=== PATIENT | male | born 1980 | race Caucasian/White ===

== ENCOUNTER 2020-01-13 08:53 | Outpatient (CLI) | payer OTHER, SELFPAY ==
--- NOTE | 2020-01-12 14:02 | DI.RAD_ITS ---
EXAM: XR ANKLE LT COMPLETE CLINICAL HISTORY: LT ANKLE JT PAIN, M25.572 TECHNIQUE: COMPARISON: XR FOOT LT COMPLETE from 01/12/2020 FINDINGS: Three views of the foot and three views of the ankle were obtained. The ankle mortise is well mainta ined. No bony abnormality seen involving the ankle. There are a couple of questionable lucencies projected in the mid to anterior portion of the calcaneu s with question of slight cortical deformity of the plantar cortex of the calcaneus seen on lateral v iews. Possibility of a nondisplaced calcaneal fracture is raised. No other bony abnormality seen involving foot. IMPRESSION: Questionable lucencies/deformity of calcaneus as described above, additional evaluation with CT may b e considered to rule out occult fracture.
== END 2020-01-13 09:13 ==
PROVIDERS: PCP Nurse Practitioner Adult Health; Visit Provider Nurse Practitioner Family
DX: M25.572 Pain in left ankle and joints of left foot (principal); M21.6X2 Other acquired deformities of left foot
CPT/HCPCS: 73610; 73630

== ENCOUNTER 2020-01-15 07:20 | Outpatient (CLI) | payer OTHER, SELFPAY ==
--- NOTE | 2020-01-15 14:05 | DI.CT_ITS ---
EXAM: CT LOWER EXTREMITY LT WO CLINICAL HISTORY: LT ANKLE JOINT PAIN, M25.572, F/U ABNORMAL X-RAYS CALCANEUS. TECHNIQUE: Imaging Protocol: Axial computed tomography images with coronal and sagittal reformatted images were created and reviewed. COMPARISON: XR FOOT LT COMPLETE from 01/12/2020 FINDINGS: Bones: The osseous structures and articular surfaces are intact. There is no evidence of fracture or dislocation. Bony alignment is satisfactory. There is no evidence of joint space narrowing or cysti c degeneration seen. No lytic or sclerotic lesions are identified. Soft Tissues: Normal. IMPRESSION: No evidence of a calcaneal fracture. DATA REPOSITORY: All CT scans at this facility are submitted to the National Radiology Data Registry (NRDR) Dose Index Registry (DIR) with the [employer] (ACR). RADIATION OPTIMIZATION: All CT scans at this facility use at least one of these dose optimization te chniques: automated exposure control; mA and/or kV adjustment per patient size (includes targeted exa ms where dose is matched to clinical indication); or iterative reconstruction.
== END 2020-01-15 07:40 ==
PROVIDERS: PCP Nurse Practitioner Adult Health; Visit Provider Nurse Practitioner Family
DX: M25.572 Pain in left ankle and joints of left foot (principal)
CPT/HCPCS: 73700

== ENCOUNTER 2021-01-05 08:32 | Outpatient (REF) | payer OTHER, SELFPAY ==
[2021-01-05 15:26] LABS: HCT 44.3 % (40.0-50.0); HGB 16.4 g/dL (13.5-17.5); MCH 34.4 pg (27.0-33.0); MCV 92.9 fL (80-95); MPV 11.8 fL (8.0-11.0); Platelet Count 269 10^3/uL (130-400); RBC 4.77 10^6/uL (4.36-5.78); RDW 12.1 % (11.8-14.1); RDW-SD 41.7 fL
[2021-01-05 15:52] LABS: Albumin 3.3 g/dL (3.4-5.0); Alkaline Phosphatase 89 U/L (46-116); Anion Gap 9.3 mmol/L (3-11); BUN 16 mg/dL (7-18); Bilirubin, Total 0.8 mg/dL (0.2-1.0); CO2 25.7 mmol/L (21.0-32.0); Calcium 7.8 mg/dL (8.5-10.1); Chloride 102 mmol/L (98-107); Cholesterol 315 mg/dL (<200); Glucose 142 mg/dL (74-106); HDL Cholesterol 28 mg/dL (40-60); Potassium 4.9 mmol/L (3.5-5.1); Sodium 137 mmol/L (136-145)
[2021-01-05 16:14] LABS: Triglyceride 2176 mg/dL (<150)
[2021-01-05 16:36] LABS: ALT 52 U/L (16-63)
[2021-01-05 16:42] LABS: CREATININE 0.5 mg/dL (0.70-1.30)
[2021-01-05 16:43] LABS: Total Protein 6.1 g/dL (6.4-8.2)
[2021-01-05 16:50] LABS: AST 45 U/L (15-37)
[2021-01-05 16:54] LABS: LDL CHOLESTEROL 86 mg/dL (<100)
== END 2021-01-05 08:33 | disposition home or self-care (01) ==
LOC: NCHCN 08:32
PROVIDERS: PCP Nurse Practitioner Adult Health; Visit Provider Family Medicine
DX: E78.1 Pure hyperglyceridemia (principal); F10.99 Alcohol use, unspecified with unspecified alcohol-induced disorder
CPT/HCPCS: 80053; 80061; 83721; 85027

== ENCOUNTER 2021-08-21 03:05 | Outpatient (CLI) | payer OTHER, SELFPAY ==
[2021-08-21] MEDS: Inhaler, Assist Device 1 EACH MC (09:30)
[2021-08-21] MEDS: Albuterol HFA 18 GM 200 PUFF INH IH (09:30)
[2021-08-21 18:34] LABS: HGB 15.4 g/dL (13.5-17.5); MCH 33.1 pg (27.0-33.0); MCHC 34.2 % (32.0-36.0); MCV 96.8 fL (80-95); MPV 11.9 fL (8.0-11.0); Platelet Count 266 10^3/uL (130-400); RBC 4.65 10^6/uL (4.36-5.78); RDW 12.2 % (11.8-14.1); RDW-SD 43.4 fL; WBC 6.99 10^3/uL (4.4-10.8)
[2021-08-21 18:43] LABS: ALT 35 U/L (16-63); AST 18 U/L (15-37); Albumin 3.9 g/dL (3.4-5.0); Alkaline Phosphatase 78 U/L (46-116); Anion Gap 7.9 mmol/L (3-11); BUN 18 mg/dL (7-18); Bilirubin, Total 0.5 mg/dL (0.2-1.0); CO2 27.1 mmol/L (21.0-32.0); CREATININE 0.9 mg/dL (0.70-1.30); Calcium 8.9 mg/dL (8.5-10.1); Chloride 108 mmol/L (98-107); Glucose 120 mg/dL (74-106); Potassium 4.7 mmol/L (3.5-5.1); Sodium 143 mmol/L (136-145)
[2021-08-21 19:07] LABS: Cholesterol 302 mg/dL (<200); HDL Cholesterol 33 mg/dL (40-60)
[2021-08-21 19:32] LABS: Triglyceride 1135 mg/dL (<150)
[2021-08-21 19:43] LABS: LDL CHOLESTEROL 115 mg/dL (<100)
[2021-08-23 09:46] LABS: Hepatitis B Surface Ag Negative (Negative)
[2021-08-23 10:33] LABS: Hepatitis C Ab w Rflx HCV PCR Negative (Negative)
[2021-08-23 11:10] LABS: HIV-1/2 Ag & Ab Screen Negative (Negative)
--- NOTE | 2021-09-01 10:49 | W.PFT ---
Date of service: 08/21/21 Time of Service: 07:59 Pulmonary Function Test Result Requesting Provider Tobi Clemens Indications: Dyspnea Interpretation Spirometry: There is mild airflow limitation. Significant improvement in FEV1 (20%) administration of a bronchodilator. Lung Volumes: There is evidence of hyperinflation and air trapping. Diffusion Capacity: Normal diffusion. Airway Pressure: Normal airways resistance. Impression Mild airflow limitation with a significant bronchodilator response as well as evidence of hyperinflation and air trapping. Note: In the correct clinical context this could represent uncontrolled asthma or chronic bronchitis (COPD). Clinical Correlation therefore is recommended.
== END 2021-08-21 03:06 | disposition home or self-care (01) ==
LOC: RT 03:06 → NCHCN 17:40
PROVIDERS: PCP Nurse Practitioner Adult Health; Visit Provider Family Medicine
DX: Z11.4 Encounter for screening for human immunodeficiency virus [HIV] (principal); E78.1 Pure hyperglyceridemia; R74.8 Abnormal levels of other serum enzymes; Z11.59 Encounter for screening for other viral diseases; Z00.00 Encounter for general adult medical examination without abnormal findings; R06.02 Shortness of breath; F17.210 Nicotine dependence, cigarettes, uncomplicated; R94.2 Abnormal results of pulmonary function studies
CPT/HCPCS: 80053; 80061; 83721; 85027; 86803; 87340; 87389; 94060; 94726; 94729

== ENCOUNTER 2022-08-09 11:30 | Outpatient (CLI) | payer OTHER, SELFPAY ==
--- OUTSIDE RECORDS SUMMARY | 2022-08-09 11:35 | XMS_ITS | Encounter Summary ---
:1980 Author Organization [facility] Address [address] [place] [address] Care Team Providers Name Role Phone Unavailable Primary Care Provider Unavailable Encounter Details Date Type Department Care Team Description 07/18/2007 Results Only [facility] - Hoa Bueno MD [address] [place] [id number] (Wo rk) Social History Tobacco Use Types Packs/Day Years Used Date Never Assessed Sex Assigned at Date Recorded Not on file documented as of this encounter Plan of Treatment Not on filedocumented as of this encounter Procedures Procedure Name Priority Date/Time Associated Diagnosis Comme [facility] SURGICAL PATHOLOGY Routine 07/18/2007 0:00 EDT Re sults for this procedure are i n the results section. documented in this encounter Results SURGICAL PATHOLOGY (07/18/2007 0:00 EDT) Pathology Report: SURGICAL PATHOLOGY REPORT THOMAS ALBERTS Reports generated via electronic interface contain eleazar ginal data; LAB however they are lacking the format of the original re port. Caution should be taken when reading/interpreting unfo rmatted reports. Name: ? PENG ZELAYA ? Accession #: ? [id number] ? : ? 1980 (Age: 26) ??M ? Collect Date: ? 07/18/2007 ? Location: ? [facility] ? Receive Date: ? 007 ? Provider: HOA VILLANUEVA MD Copy to: ? Final Pathologic Diagnosis: ? Olecranon bursa, left, resection: - Acute and chronic inflammation and granulation tissu e. Document reviewed and electronically signed by: DEDE ESPITIA MD Report ??Date: 07/25/2007 08:29 By the signature above, the attending physician certif ies that he/she has personally conducted a gross and/or microscopic examin ation of the described specimens and rendered or confirmed the above diagnosi s. Specimen(s) Received: ? Infected olecranon bursa L Clinical History: ? L olecranon, bursitis Gross Description: ? Received in formalin labelled D'Cathryn and infected olecranon bursa left is a firm arreaga-white unorien ronni 4.1 3.4 x 1.4 cm rubbery soft tissue. ??The cut surfaces are smooth, homogenous and yellow-white. ??Th e specimen is inked, serially sectioned, and repr esentative sections are submitted as (A1) and (A2). (Dr. Mari-MS)/[facility] End of Report Specimen Performing Organization Address City/State/ZIP Code Phon e Number [facility] [address] [place] [address] SERVICES [facility] [address] [place] [address] documented in this encounter Visit Diagnoses Not on filedocumented in this encounter
--- OUTSIDE RECORDS SUMMARY | 2022-08-09 11:35 | XMS_ITS | Encounter Summary ---
:1980 Author Organization [facility] Address [address] [place] [address] Care Team Providers Name Role Phone Unknown, Provider Primary Care Provider Encounter Details Date Type Department Care Team Description 08/22/2021 Lab Requisition [facility] Outr Resulting Lab, Pathology & Laboratory Provider [facility] [address] [place] [address] Social History Tobacco Use Types Packs/Day Years Used Date Never Assessed Sex Assigned at Date Recorded Not on file documented as of this encounter Plan of Treatment Not on filedocumented as of this encounter Procedures Procedure Name Priority Date/Time Associated Diagnosis Comme nts HEPATITIS C AB W Routine 08/21/2021 7:30 EDT Resu lts for this REFLEX TO HCV RNA procedure are in BY PCR the results section. HEPATITIS B SURFACE Routine 08/21/2021 7:30 EDT R esults for this ANTIGEN procedure are i n the results section. documented in this encounter Results HEPATITIS B SURFACE ANTIGEN (08/21/2021 7:30 EDT) Pathologist Sig nature Hep B Surface Ag Negative Negative [facility] SERVICES Specimen Blood - Venous blood (substance) Performing Organization Address [facility]/ZIP Code Phon e Number [facility] [address] [place] [address] SERVICES HEPATITIS C AB W REFLEX TO HCV RNA BY PCR (08/21/2021 7:30 EDT) Pathologist Sig nature Hep C Antibody Negative Negative [facility] SERVICES Specimen Blood - Venous blood (substance) Performing Organization Address [facility] Phon e Number [facility] [address] [place] [address] SERVICES documented in this encounter Visit Diagnoses Not on filedocumented in this encounter Care Teams Medical Housekeeper Relationship Specialty Start Date End Date Unknown, Provider, PCP - General 09/02/15 documented as of this encounter
--- OUTSIDE RECORDS SUMMARY | 2022-08-09 11:35 | XMS_ITS | Clinical Summary ---
:1980 Author Organization [facility] Address [address] [place] [address] Care Team Providers Name Role Phone Unknown, Provider Primary Care Provider Social History Tobacco Use Types Packs/Day Years Used Date Never Assessed Sex Assigned at Date Recorded Not on file Plan of Treatment Health Maintenance Due Date Last Done Comments COVID-19 Vaccine (1) 1992 Hepatitis C Screen Completed 08/21/2021 Care Teams Supervisor [employer] Relationship Specialty Start Date End Date Unknown, Provider, PCP - General 09/02/15
[2022-08-09 15:29] LABS: HCT 46.8 % (40.0-50.0); HGB 16.4 g/dL (13.5-17.5); MCH 32.9 pg (27.0-33.0); MCV 94 fL (80-95); MPV 10.8 fL (8.0-11.0); Platelet Count 266 10^3/uL (130-400); RBC 4.99 10^6/uL (4.36-5.78); RDW 12.3 % (11.8-14.1); RDW-SD 42.6 fL; WBC 7.33 10^3/uL (4.4-10.8)
[2022-08-09 15:58] LABS: ALT 33 U/L (16-63); AST 29 U/L (15-37); Albumin 4.2 g/dL (3.4-5.0); Alkaline Phosphatase 85 U/L (46-116); Anion Gap 8.7 mmol/L (3-11); BUN 21 mg/dL (7-18); Bilirubin, Total 1.2 mg/dL (0.2-1.0); CO2 27.3 mmol/L (21.0-32.0); Calcium 9.2 mg/dL (8.5-10.1); Calculated LDL 190 mg/dL (<100); Chloride 104 mmol/L (98-107); Cholesterol 288 mg/dL (<200); Estimated GFR 96.97 (mL/min/1.73m2); Glucose 100 mg/dL (74-106); HDL Cholesterol 57 mg/dL (40-60); Potassium 4.3 mmol/L (3.5-5.1); Sodium 140 mmol/L (136-145); Total Protein 7.8 g/dL (6.4-8.2); Triglyceride 208 mg/dL (<150)
== END 2022-08-09 11:31 | disposition home or self-care (01) ==
LOC: LBO 11:33 → NCHCN 14:43
PROVIDERS: PCP Nurse Practitioner Adult Health; Visit Provider Family Medicine
DX: R74.8 Abnormal levels of other serum enzymes (principal); F10.99 Alcohol use, unspecified with unspecified alcohol-induced disorder; E78.1 Pure hyperglyceridemia
CPT/HCPCS: 80053; 80061; 85027

== ENCOUNTER 2022-10-23 21:54 | Outpatient (REF) | payer OTHER, SELFPAY ==
[2022-10-25 11:34] LABS: COVID-19 RT-PCR UVMMC Result Positive (Negative)
== END 2022-10-23 21:55 | disposition home or self-care (01) ==
LOC: LBN 21:54
PROVIDERS: PCP Nurse Practitioner Adult Health; Visit Provider Family Medicine
DX: Z20.822 Contact with and (suspected) exposure to COVID-19 (principal); J06.9 Acute upper respiratory infection, unspecified
CPT/HCPCS: U0003

== ENCOUNTER 2023-11-15 08:56 | Outpatient (CLI) | payer OTHER, SELFPAY ==
[2023-11-15 09:30] LABS: CO2 28.4 mmol/L (21.0-32.0); Cholesterol 364 mg/dL (<200); HDL Cholesterol 44 mg/dL (40-60)
[2023-11-15 09:35] LABS: Triglyceride 1047 mg/dL (<150)
[2023-11-15 10:11] LABS: ALT 32 U/L (16-63); AST 18 U/L (15-37); Albumin 3.7 g/dL (3.4-5.0); Alkaline Phosphatase 66 U/L (46-116); Anion Gap 7.6 mmol/L (3-11); BUN 19 mg/dL (7-18); Chloride 104 mmol/L (98-107); Estimated GFR 95.77 (mL/min/1.73m2); Glucose 115 mg/dL (74-106); Sodium 140 mmol/L (136-145)
[2023-11-15 10:12] LABS: Bilirubin, Total 0.7 mg/dL (0.2-1.0); Potassium 4.5 mmol/L (3.5-5.1); Total Protein 7.2 g/dL (6.4-8.2)
[2023-11-15 10:14] LABS: LDL CHOLESTEROL 92 mg/dL (<100)
== END 2023-11-15 08:57 | disposition home or self-care (01) ==
LOC: LBO 08:56
PROVIDERS: PCP Nurse Practitioner Adult Health; Visit Provider Family Medicine
DX: E78.5 Hyperlipidemia, unspecified (principal); F10.10 Alcohol abuse, uncomplicated
CPT/HCPCS: 36415; 80053; 80061; 83721

== ENCOUNTER 2024-01-06 08:51 | Emergency (ER) | payer OTHER, SELFPAY ==
[2024-01-06] VITALS (39 sets, daily range): BP systolic 137–176; BP diastolic 47–70; PULSE 33–48; RESP 10–22; TEMP 36.6; O2SAT 97–100
--- NOTE | 2024-01-06 08:45 | DI.RAD_ITS ---
Exam(s) XR PORTABLE CHEST AP EXAM: XR PORTABLE CHEST AP CLINICAL HISTORY: chest pain. TECHNIQUE: 2D digital imaging was performed. COMPARISON: No exams were available for comparison FINDINGS: Single AP portable view. Cardiac leads and pads in place. Heart size is upper normal. The mediastinum is not widened. Platelike atelectasis or scarring noted in the right upper lobe. No infiltrates nor pleural effusions. No airspace pulmonary edema. No pneumothorax. No fractures. IMPRESSION: Scarring or platelike atelectasis in the right upper lobe. DATA REPOSITORY: RADIATION DOSE DELIVERED:
--- NOTE | 2024-01-06 08:45 | RT.EKG_ITS ---
APPROVED REPORT Exam: Resting ECG Reason for Exam: Chest Pain Patient Location: E HR:36 bpm ECG Measurements Heart Rate 36 AXIS WV 162 P 33 QRSd 97 QRS 30 QT 448 T 79 QTc 346 Conclusion Sinus bradycardia...rate< 60 Nonspecific T abnrm, anterolateral leads...T <-0.10mV, I aVL V2-V6 ST elev, probable normal early repol pattern...ST elevation, age<55 sinus bradycardia, normal axis, normal intervals, consider st segment elevation V3, V4
[2024-01-06] MEDS: Normal Saline 500 ML IV (09:07)
[2024-01-06] MEDS: Aspirin 81 MG CHEW 324 MG CH (09:07)
[2024-01-06 09:10] LABS: Abs Immature Grans 0.02 10^3/uL (0.0-0.06); Absolute Basophil Count 0.08 10^3/uL (0.0-0.2); Absolute Eosinophil Count 0.64 10^3/uL (0.0-0.7); Absolute Lymphocyte Count 2.89 10^3/uL (1.2-3.4); Absolute Monocyte Count 0.55 10^3/uL (0.1-0.8); Absolute Neutrophil Count 4.12 10^3/uL (1.2-6.7); Eosinophils % 7.7; HCT 46.4 % (40.0-50.0); HGB 16.5 g/dL (13.5-17.5); Immature Grans % 0.2; Lymphocytes % 34.8; MCH 32.9 pg (27.0-33.0); MCHC 35.6 % (32.0-36.0); MCV 93 fL (80-95); MPV 9.8 fL (8.0-11.0); Monocytes % 6.6; Neutrophils % 49.7; Platelet Count 266 10^3/uL (130-400); RBC 5.01 10^6/uL (4.36-5.78); RDW 12.2 % (11.8-14.1); RDW-SD 41.7 fL
[2024-01-06] MEDS: MORPHine 4 MG/ML SYR IVP (09:16)
--- NOTE | 2024-01-06 09:20 | W.ED.GENAD ---
Discharge Plan Disposition Patient Disposition: Transfer-Acute Inpatient Care Specific Acute Inpt Facility: [facility] Condition: Serious Discharge Details Clinical Impression: Acute dissection of thoracic aorta Primary Care Provider: Tobi Clemens ED Provider: Darin Agee Home Meds and New Rx's Prescriptions: No Action No Known Home Meds HPI General Date/Time Provider Initiated Documentation: 01/06/24 08:57. HPI Narrative: 43 year-old male presents to ED today by POV/ambulating with a chief complaint of chest pain, sudden onset while dropping his daughter off at school- ten minutes prior to arrival. Quality described as squeezing sensation around his esophagus, no radiation to syncope- endorses shortness of breath, dizziness, mild blurred vision, and just feeling weak. Severity is described as 7/10 on arrival, improved to 5/10 with analgesics. Palliating factors include nothing specific attemtped. Provoking factors include nothing specific. Events leading up to the incident/Associated Symptoms: Patient denies cardiac history, takes no medications, was recently diagnosed with severely high triglycerides by PCP- not yet initiated on statins. Patient denies early cardiac history in first degree relatives. Patient not anticoagulated. Related Data Home Medications Medication Instructions Recorded Confirmed Unknown [No Known Home Meds] 01/06/24 01/06/24 Allergies Allergy/AdvReac Type Severity Reaction Status Date / Time No Known Allergies Allergy Unverified 01/06/24 09:09 General Stated Complaint: Chest Pain JENNYFER: 2 Review of Systems All systems reviewed & are unremarkable except as noted in HPI and below Exam Narrative Exam Narrative: GENERAL APPEARANCE: Well-nourished, non-toxic, awake and alert, atraumatic, no acute distress. SKIN: Warm, pale, diaphoretic, intact, without rashes/lesions/ulcerations. HEAD: Normocephalic, atraumatic, normal hair distribution for gender/age. EYES: Pupils PERRLA, EOMs intact without nystagmus, normal conjunctiva, no exudates on lids/lashes. ENT: Nares patent, no circumoral cyanosis, no facial swelling NECK: Supple, trachea midline, painless cervical ROM. LUNGS/CHEST: Lungs CTA bilaterally, non-labored respirations, normal A/P diameter, symmetrical expansion, no chest wall deformity HEART (CV/PV): Regular rate and rhythm without murmur- severely bradycardic, no peripheral edema, no JVD, pedal pulses 2+ bilaterally at dorsalis pedis ABDOMEN: Soft, non-distended, no guarding, no pulsatile masses, no tenderness, no organomegaly. MSK: Normal ROM, no swelling/deformity to bilateral UEs or LEs, moving all extremities without weakness, no cyanosis, spine midline without tenderness, normal curvature. NEURO: Mental Status AAOx4 - alert to person, place, time, events No facial droop, no forehead involvement. Motor: No focal weakness - strength 5/5 in bilateral UEs and LEs, proximal and distal, symmetric. Sensory: sensation intact to light touch globally. Gait normal: patient ambulated without ataxia into ED room. PSYCH: euthymic, cooperative, pleasant, appropriate speech Course Vital Signs Vital signs: Vital Signs Temperature 36.6 C 01/06/24 08:56 Pulse 38 L 01/06/24 08:56 Respiratory Rate 22 01/06/24 08:56 Blood Pressure 170/70 H 01/06/24 08:56 Pulse Oximetry 100 01/06/24 08:56 Temperature 36.6 C 01/06/24 08:56 Pulse 38 L 01/06/24 08:56 Respiratory Rate 11 L 01/06/24 09:14 Respiratory Effort Normal 01/06/24 09:14 Respiratory Depth Normal 01/06/24 09:14 Respiratory Pattern Normal 01/06/24 09:14 Blood Pressure 170/70 H 01/06/24 08:56 Blood Pressure Position Supine 01/06/24 08:56 Pulse Oximetry 100 01/06/24 08:56 Pain Level 7 01/06/24 08:56 Lab/Test Results Lab/Test Results: Laboratory Tests Range/Units 01/06/24 09:05 WBC (4.4-10.8) 10^3/uL 8.30 RBC (4.36-5.78) 10^6/uL 5.01 Hgb (13.5-17.5) g/dL 16.5 Hct (40.0-50.0) % 46.4 MCV (80-95) fL 93 MCH (27.0-33.0) pg 32.9 MCHC (32.0-36.0) % 35.6 RDW (11.8-14.1) % 12.2 Plt Count (130-400) 10^3/uL 266 MPV (8.0-11.0) fL 9.8 Immature Gran % 0.2 Neutrophils % 49.7 Lymphocytes % 34.8 Monocytes % 6.6 Eosinophils % 7.7 Basophils % 1.0 Nucleated RBC % (0.0-0.3) % 0.0 Absolute Neutrophils (1.2-6.7) 10^3/uL 4.12 Absolute Lymphocytes (1.2-3.4) 10^3/uL 2.89 Absolute Monocytes (0.1-0.8) 10^3/uL 0.55 Absolute Eosinophils (0.0-0.7) 10^3/uL 0.64 Absolute Basophils (0.0-0.2) 10^3/uL 0.08 Medical Decision Making This dictation utilizes [id number] dictation software and may contain unedited grammatical errors. 43 y/o M presents to ED today with a chief complaint of chest pain, sweating, dizziness - started about 10 minutes prior to arrival while dropping his daughter off at school. States no syncope, feels like a squeezing around his esophagus, denies nausea/vomiting. Patient did have Covid this winter, reports many tick bites over the year. Denies known cardiac history, does have severely high triglycerides, recently diagnosed and has not been started on a statin. Family and social history: endorses tobacco use, denies ETOH/illicit drug use. Pertinent exam findings / vital signs include bradycardic in 30s-50, pale, diaphoretic, lungs CTA, benign abdomen, no pulsations. Differential / pathologies of concern include complete heart block, lyme carditis, myocarditis, NSTEMI, aortic dissection, gastritis. Diagnostic studies of: -CBC, CMP, Lipase, Lactate, Tick Panel, TSH, Trop I, BNP, D-dimer, CXR, EKG, CTA Thorax/ABD/Pelvis. POCUS ECHO by EM Attending Dr. Lin. -CBC benign -CMP benign, no ARCHANA -Lactate neg -Lipase wnl -Trop I negative, BNP normal -D-dimer mildly elevated -CXR no widened mediastinum -EKG sinus bradycardia without complete heart block -POCUS shows good squeeze globally, no valvular abnormality, see Dr. Lin's note -CT Thorax/ABD/Pelvis was added with negative studies and continued chest pain - shows Type A thoracic aortic dissection without carotid involvement, no pericardial effusion > emergent transfer, consulted [facility] CT Surgeon Dr. Cardenas - accepts patient for transfer, [facility] en route. Goal SBP < 120, patient is severely bradycardic- trying fentanyl to see if pain playing a role in BP of 150s-170 SBP, started Nicardipine with atropine at bedside if needed. Interventions of: -Placed on pacing pads, 324mg ASA given, 4mg morphine, 50mcg fentanyl, [facility] to [facility] ED. Disposition of Acute Dissection of Thoracic Aorta. Patient verbalized understanding of the plan and return to ED criteria and engaged in shared decision making. Medical Records Medical records reviewed: Yes I reviewed the patient's medical records. Imaging Data Radiologic Study: Attestation: I personally reviewed and interpreted this imaging study as follows: Imaging: X-Ray Radiologist's impression: EXAM: XR PORTABLE CHEST AP CLINICAL HISTORY: chest pain. TECHNIQUE: 2D digital imaging was performed. COMPARISON: No exams were available for comparison FINDINGS: Single AP portable view. Cardiac leads and pads in place. Heart size is upper normal. The mediastinum is not widened. Platelike atelectasis or scarring noted in the right upper lobe. No infiltrates nor pleural effusions. No airspace pulmonary edema. No pneumothorax. No fractures. IMPRESSION: Scarring or platelike atelectasis in the right upper lobe. Radiologic Study #2: Attestation: I personally reviewed and interpreted this imaging study as follows: Imaging: CT Scan Radiologist's impression: EXAM: CT THORAX ABD/PEL CTA CLINICAL HISTORY: aorta study, chest pain. TECHNIQUE: Imaging Protocol: Axial computed tomography images with coronal and sagittal reformatted images were created and reviewed CONTRAST MATERIAL: Intravenous: Omnipaque 350 Contrast volume:100 ml Oral: None COMPARISON: CR XR PORTABLE CHEST AP from 01/06/2024 FINDINGS: CHEST: AORTA: This study is positive for dissection. There is a type A aortic dissection starting just above the aortic valve and extending along the length of the aortic arch and with intimal flap seen down to the level of the lower descending thoracic aorta but not continue into the patent abdominal aorta. There is no associated pericardial effusion. The aortic arch anatomy appears bovine. The intimal flap extends along the origin of the brachiocephalic/left common carotid and also adjacent to the base of the left subclavian artery. There is normal opacification of these great vessels off of the arch. The diameter of the ascending thoracic aorta is 3.8 cm. The diameter of the proximal and mid aortic arch is 3.6 cm. Diameter of the proximal descending thoracic aorta is 3 cm. Diameter of the mid descending thoracic aorta is 2.7 cm. Diameter of the distal most thoracic aorta is 2.5 cm. There is no evidence of abdominal aortic aneurysm. Maximum diameter of the abdominal aorta is 2.3 cm. There is slight prominence of diameter of both common iliac arteries. These exhibit diameters 1.4 cm bilaterally. There is no significant atherosclerotic disease in the abdominal aorta and iliac arteries. No significant tortuosity of the common and external iliac arteries. Both femoral arteries exhibit equal 10 mm luminal diameters. LUNGS: No infiltrates nor pleural effusions. No pulmonary edema. No pneumothorax. No incidental nodules. No findings in the trachea and mainstem bronchi.. MEDIASTINUM: There is no hilar nor mediastinal adenopathy. Visualized thyroid unremarkable. CARDIAC: Heart size is normal. There is no pericardial effusion. There is no obvious coronary artery calcification. ABDOMEN: There is no ascites. LIVER: There are no focal hepatic lesions nor dilatation of intrahepatic ducts. GALLBLADDER/BILIARY: No obvious gallbladder pathology. CBD is not dilated. PANCREAS: No evidence of pancreatic mass nor dilatation of the pancreatic duct. SPLEEN: Spleen is not enlarged. There are no intrasplenic lesions. Splenic and portal veins are patent. ADRENALS: There are no significant adrenal masses. 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 No calculi nor hydronephrosis. No solid renal masses. ABDOMINAL AORTA: The abdominal aorta is not enlarged. LYMPH NODES: There is no retroperitoneal nor para-aortic adenopathy. No obvious mesenteric masses. ABDOMINAL WALL: No evidence of significant anterior abdominal wall hernia. GI: No ischemic appearing bowel loops. No bowel obstruction. PELVIS: LYMPH NODES: There is no intrapelvic nor inguinal adenopathy. GI: No evidence of appendicitis.No evidence of sigmoid diverticulitis. URINARY BLADDER: No calculi nor masses evident REPRODUCTIVE: Prostate size normal. Seminal vesicles unremarkable. OSSEOUS: No significant osseous lesions. No fractures. IMPRESSION: 1. There is a type A aortic dissection extending from just above the aortic valve down to the lower thoracic aorta, not associated with pericardial effusion and heart size is normal. Diameter of the ascending thoracic aorta is 3.8 cm and there is no evidence of atherosclerotic disease in the entire aorta and aortoiliac segments. No evidence of abdominal aortic aneurysm. Mild arteriomegaly of both common iliac arteries noted with diameter is 1.4 cm bilaterally but no evidence of focal fusiform aneurysms of these vessels. 2. The dissection flap skirts the origin of the brachiocephalic and slightly bovine origin of the left common carotid artery as well as the origin of the left subclavian artery but does not appear to extend appreciably into these great vessels and there is good flow demonstrated within these great vessels. Both vertebral arteries are patent and both originate in conventional fashion off of the bilateral subclavian arteries. 3. Horseshoe kidney configuration incidentally noted. 4. No ischemic appearing bowel loops in the dissection flap does not extend into the abdominal aorta at the time of image acquisition. It appears to terminate in the distal thoracic aorta Report discussed by phone with ER provider Lab Data Lab results reviewed: Yes I reviewed the patient's lab results. Labs: Laboratory Tests Range/Units 01/06/24 01/06/24 09:05 10:30 WBC (4.4-10.8) 10^3/uL 8.30 RBC (4.36-5.78) 10^6/uL 5.01 Hgb (13.5-17.5) g/dL 16.5 Hct (40.0-50.0) % 46.4 MCV (80-95) fL 93 MCH (27.0-33.0) pg 32.9 MCHC (32.0-36.0) % 35.6 RDW (11.8-14.1) % 12.2 Plt Count (130-400) 10^3/uL 266 MPV (8.0-11.0) fL 9.8 Immature Gran % 0.2 Neutrophils % 49.7 Lymphocytes % 34.8 Monocytes % 6.6 Eosinophils % 7.7 Basophils % 1.0 Nucleated RBC % (0.0-0.3) % 0.0 Absolute Neutrophils (1.2-6.7) 10^3/uL 4.12 Absolute Lymphocytes (1.2-3.4) 10^3/uL 2.89 Absolute Monocytes (0.1-0.8) 10^3/uL 0.55 Absolute Eosinophils (0.0-0.7) 10^3/uL 0.64 Absolute Basophils (0.0-0.2) 10^3/uL 0.08 D-Dimer (<500) ng/mlFEU 505 H Sodium (136-145) mmol/L 139 Potassium (3.5-5.1) mmol/L 4.1 Chloride (98-107) mmol/L 104 Carbon Dioxide (21.0-32.0) mmol/L 21.4 Anion Gap (3-11) mmol/L 13.6 H BUN (7-18) mg/dL 19 H Creatinine (0.70-1.30) mg/dL 1.1 Est GFR (CKD-EPI 2020) (mL/min/1.73m2) 85.42 Glucose (74-106) mg/dL 143 H Calcium (8.5-10.1) mg/dL 8.2 L Total Bilirubin (0.2-1.0) mg/dL 0.4 AST (15-37) U/L 31 ALT (16-63) U/L 33 Alkaline Phosphatase (46-116) U/L 83 Troponin I (< or =60) ng/L < 50 NT-Pro-B Natriuret Pep (<300) pg/mL 93 Total Protein (6.4-8.2) g/dL 7.2 Albumin (3.4-5.0) g/dL 3.7 Lipase (16-77) U/L 33 TSH (0.36-3.74) uIU/mL 1.88 COVID-19 Source Nasopharynx SARS-CoV-2 (PCR) (Negative) Negative Influenza Type A (PCR) (Negative) Negative Influenza Type B (PCR) (Negative) Negative RSV (PCR) (Negative) Negative Quality:SDOH Health Related Social Needs: No Data to Display PFSH All Active Problems (Updated 01/06/24 @ 12:03 by LUISANA Stewart) Acute dissection of thoracic aorta (Acute) Social History Smoking/Tobacco Use Status: Current every day Smoking risk assessment performed?: Yes Alcohol Intake: current Alcohol Intake frequency: a few times a week Alcohol type: beer Drug use: Daily Substance use type: does not use PAWSS Have you Been Recently Intoxicated or Drunk Within the Last 30 days?: No Have you Ever Experienced Previous Episodes of Alcohol Withdrawal?: No Have you ever Experienced Withdrawal Seizures?: No Have you ever Experienced Delirium Tremens(DT)s?: No Have you ever undergone Alcohol Rehabilitation Treatment (i.e, inpt ot outpatient treatment programs)?: No Have you ever Experienced Blackouts?: No Have you ever Combined Alcohol with other Downers within the last 90 days?: No Have you ever Combined Alcohol with any other Substance of Abuse during the last 90 days?: No Result: 0
[2024-01-06 09:40] LABS: D-Dimer 505 ng/mlFEU (<500)
[2024-01-06 09:48] LABS: Albumin 3.7 g/dL (3.4-5.0); Alkaline Phosphatase 83 U/L (46-116); Anion Gap 13.6 mmol/L (3-11); BUN 19 mg/dL (7-18); Bilirubin, Total 0.4 mg/dL (0.2-1.0); CO2 21.4 mmol/L (21.0-32.0); CREATININE 1.1 mg/dL (0.70-1.30); Calcium 8.2 mg/dL (8.5-10.1); Chloride 104 mmol/L (98-107); Estimated GFR 85.42 (mL/min/1.73m2); Glucose 143 mg/dL (74-106); Lipase 33 U/L (16-77); NT-proBNP 93 pg/mL (<300); Potassium 4.1 mmol/L (3.5-5.1); Sodium 139 mmol/L (136-145); Total Protein 7.2 g/dL (6.4-8.2); Troponin I < 50 ng/L (< or =60)
[2024-01-06 10:24] LABS: ALT 33 U/L (16-63); AST 31 U/L (15-37)
--- NOTE | 2024-01-06 10:30 | DI.CT_ITS ---
Exam(s) CT THORAX ABD/PEL CTA EXAM: CT THORAX ABD/PEL CTA CLINICAL HISTORY: aorta study, chest pain. TECHNIQUE: Imaging Protocol: Axial computed tomography images with coronal and sagittal reformatted images were created and reviewed CONTRAST MATERIAL: Intravenous: Omnipaque 350 Contrast volume:100 ml Oral: None COMPARISON: CR XR PORTABLE CHEST AP from 01/06/2024 FINDINGS: CHEST: AORTA: This study is positive for dissection. There is a type A aortic dissection starting just abov e the aortic valve and extending along the length of the aortic arch and with intimal flap seen down to the level of the lower descending thoracic aorta but not continue into the patent abdominal aorta. There is no associated pericardial effusion. The aortic arch anatomy appears bovine. The intimal flap extends along the origin of the brachiocephalic/left common carotid and also adjacent to the bas e of the left subclavian artery. There is normal opacification of these great vessels off of the arc h. The diameter of the ascending thoracic aorta is 3.8 cm. The diameter of the proximal and mid aortic arch is 3.6 cm. Diameter of the proximal descending thoracic aorta is 3 cm. Diameter of the mid faby cending thoracic aorta is 2.7 cm. Diameter of the distal most thoracic aorta is 2.5 cm. There is no evidence of abdominal aortic aneurysm. Maximum diameter of the abdominal aorta is 2.3 cm. There is slight prominence of diameter of both common iliac arteries. These exhibit diameters 1.4 cm bilater ally. There is no significant atherosclerotic disease in the abdominal aorta and iliac arteries. No significant tortuosity of the common and external iliac arteries. Both femoral arteries exhibit equ al 10 mm luminal diameters. LUNGS: No infiltrates nor pleural effusions. No pulmonary edema. No pneumothorax. No incidental no dules. No findings in the trachea and mainstem bronchi.. MEDIASTINUM: There is no hilar nor mediastinal adenopathy. Visualized thyroid unremarkable. CARDIAC: Heart size is normal. There is no pericardial effusion. There is no obvious coronary arter y calcification. ABDOMEN: There is no ascites. LIVER: There are no focal hepatic lesions nor dilatation of intrahepatic ducts. GALLBLADDER/BILIARY: No obvious gallbladder pathology. CBD is not dilated. PANCREAS: No evidence of pancreatic mass nor dilatation of the pancreatic duct. SPLEEN: Spleen is not enlarged. There are no intrasplenic lesions. Splenic and portal veins are tolbert nt. ADRENALS: There are no significant adrenal masses. 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 No calculi nor hydronephrosis. No solid renal mass es. ABDOMINAL AORTA: The abdominal aorta is not enlarged. LYMPH NODES: There is no retroperitoneal nor para-aortic adenopathy. No obvious mesenteric masses. ABDOMINAL WALL: No evidence of significant anterior abdominal wall hernia. GI: No ischemic appearing bowel loops. No bowel obstruction. PELVIS: LYMPH NODES: There is no intrapelvic nor inguinal adenopathy. GI: No evidence of appendicitis.No evidence of sigmoid diverticulitis. URINARY BLADDER: No calculi nor masses evident REPRODUCTIVE: Prostate size normal. Seminal vesicles unremarkable. OSSEOUS: No significant osseous lesions. No fractures. IMPRESSION: 1. There is a type A aortic dissection extending from just above the aortic valve down to the lower t horacic aorta, not associated with pericardial effusion and heart size is normal. Diameter of the as cending thoracic aorta is 3.8 cm and there is no evidence of atherosclerotic disease in the entire ao rta and aortoiliac segments. No evidence of abdominal aortic aneurysm. Mild arteriomegaly of both c ommon iliac arteries noted with diameter is 1.4 cm bilaterally but no evidence of focal fusiform aneu rysms of these vessels. 2. The dissection flap skirts the origin of the brachiocephalic and slightly bovine origin of the lef t common carotid artery as well as the origin of the left subclavian artery but does not appear to ex tend appreciably into these great vessels and there is good flow demonstrated within these great vess els. Both vertebral arteries are patent and both originate in conventional fashion off of the bilate ral subclavian arteries. 3. Horseshoe kidney configuration incidentally noted. 4. No ischemic appearing bowel loops in the dissection flap does not extend into the abdominal aorta at the time of image acquisition. It appears to terminate in the distal thoracic aorta Report discussed by phone with ER provider RADIATION DOSE DELIVERED: Total DLP DATA REPOSITORY: All CT scans at this facility are submitted to the National Radiology Data Registry (NRDR) Dose Index Registry (DIR) with the [employer] (ACR). RADIATION OPTIMIZATION: All CT scans at this facility use at least one of these dose optimization te chniques: automated exposure control; mA and/or kV adjustment per patient size (includes targeted exa ms where dose is matched to clinical indication); or iterative reconstruction.
[2024-01-06 11:16] LABS: TSH (W/Ref FT4) 1.88 uIU/mL (0.36-3.74)
[2024-01-06 11:33] LABS: COVID-19 PCR Negative (Negative); Influenza A PCR Negative (Negative); Influenza B PCR Negative (Negative); RSV PCR Negative (Negative)
[2024-01-06 11:35] LABS: Source Nasopharynx
[2024-01-06] MEDS: fentaNYL 100 MCG/2 ML VIAL 50 MCG IVP (11:50)
[2024-01-06] MEDS: niCARdipine 25 MG in Normal Saline 240 ML 50 MG IV (11:58)
[2024-01-07 10:46] LABS: Lyme Ab w Rflx to Lyme Confirm Negative (Negative)
[2024-01-08 15:16] LABS: Anaplasma phagocytophilum Negative (Negative); B. miyamotoi PCR Negative (Negative); Babesia divergens/MO-1 Negative (Negative); Babesia duncani Negative (Negative); Babesia microti Negative (Negative); Ehrlichia chaffeensis Negative (Negative); Ehrlichia ewingii/canis Negative (Negative); Ehrlichia muris eauclairensis Negative (Negative)
--- NOTE | 2024-01-09 07:18 | NUR.NOTE ---
Duplicate EKG order cancelled. Nursing Note:
== END 2024-01-06 12:18 | disposition short-term general hospital (02) ==
PROVIDERS: Emergency Provider Physician Assistant; PCP Family Medicine
DX: I71.012 Dissection of descending thoracic aorta (principal); R00.1 Bradycardia, unspecified; Z11.52 Encounter for screening for COVID-19
CPT/HCPCS: 36415; 71275; 80053; 83690; 87637; 87798; 93005; 96361; 96374; 96375; 99285; 71045; 74174; 83880; 84443; 84484; 85025; 85379; 86618; 93010; J2270; J2404; J3010

== ENCOUNTER 2024-01-17 17:10 | Outpatient (RCR) | payer OTHER, SELFPAY | END 2024-01-19 23:59 | disposition home or self-care (01) | LOC: CR 17:10 | PROVIDERS: PCP Family Medicine; Visit Provider Internal Medicine Cardiovascular Disease | DX: R69 Illness, unspecified (principal) ==

== ENCOUNTER 2024-01-30 14:17 | Outpatient (REF) | payer OTHER, SELFPAY ==
[2024-01-30 19:31] LABS: Abs Immature Grans 0.05 10^3/uL (0.0-0.06); Absolute Eosinophil Count 0.43 10^3/uL (0.0-0.7); Absolute Lymphocyte Count 1.87 10^3/uL (1.2-3.4); Absolute Monocyte Count 0.69 10^3/uL (0.1-0.8); Basophils % 0.9; HCT 33.5 % (40.0-50.0); Immature Grans % 0.5; Lymphocytes % 17.4; MCH 31.9 pg (27.0-33.0); MCHC 32.8 % (32.0-36.0); MCV 97 fL (80-95); MPV 10.1 fL (8.0-11.0); Monocytes % 6.4; Neutrophils % 70.8; Platelet Count 435 10^3/uL (130-400); RBC 3.45 10^6/uL (4.36-5.78); RDW 12.8 % (11.8-14.1); RDW-SD 45.1 fL; WBC 10.74 10^3/uL (4.4-10.8)
[2024-01-30 19:41] LABS: ALT 47 U/L (16-63); AST 19 U/L (15-37); Albumin 3.5 g/dL (3.4-5.0); Alkaline Phosphatase 103 U/L (46-116); Anion Gap 9.6 mmol/L (3-11); BUN 25 mg/dL (7-18); Bilirubin, Total 0.4 mg/dL (0.2-1.0); CO2 26.4 mmol/L (21.0-32.0); CREATININE 1.1 mg/dL (0.70-1.30); Calculated LDL 119 mg/dL (<100); Chloride 103 mmol/L (98-107); Cholesterol 210 mg/dL (<200); Estimated GFR 85.42 (mL/min/1.73m2); Glucose 104 mg/dL (74-106); HDL Cholesterol 47 mg/dL (40-60); Potassium 5.2 mmol/L (3.5-5.1); Sodium 139 mmol/L (136-145); Total Protein 6.6 g/dL (6.4-8.2); Triglyceride 224 mg/dL (<150)
== END 2024-01-30 14:18 | disposition home or self-care (01) ==
LOC: NCHCN 14:17
PROVIDERS: PCP Family Medicine; Visit Provider Family Medicine
DX: E78.5 Hyperlipidemia, unspecified (principal); I10 Essential (primary) hypertension; R50.9 Fever, unspecified
CPT/HCPCS: 80053; 80061; 85025

== ENCOUNTER 2024-02-17 09:00 | Outpatient (RCR) | payer OTHER, SELFPAY | END 2024-02-18 23:59 | disposition home or self-care (01) | LOC: CR 09:00 | PROVIDERS: PCP Family Medicine; Visit Provider Internal Medicine Cardiovascular Disease | DX: I71.010 Dissection of ascending aorta (principal); Z95.5 Presence of coronary angioplasty implant and graft; Z51.89 Encounter for other specified aftercare | CPT/HCPCS: S9472 ==

== ENCOUNTER 2024-03-20 09:25 | Outpatient (RCR) | payer OTHER, SELFPAY | END 2024-03-20 23:59 | disposition home or self-care (01) | LOC: CR 09:25 | PROVIDERS: PCP Family Medicine; Visit Provider Internal Medicine Cardiovascular Disease | DX: I71.012 Dissection of descending thoracic aorta (principal); Z51.89 Encounter for other specified aftercare | CPT/HCPCS: S9472 ==

== ENCOUNTER 2024-04-08 05:08 | Outpatient (CLI) | payer OTHER, SELFPAY ==
--- NOTE | 2024-04-08 12:31 | W.NUTRFU ---
Date of service: 04/08/24 Time of Service: 09:00 Nutrition Note NOTE: Mr Eric comes in to get some nutrition guidance for HLD. Pt has BMI >30 and currently 241lbs with a stated goal to address his weight and reduce to 225. We focused our discussion on weight mgt and trying to improve lipids by meal planning for a more plant-based, whole/minimally processed whole foods and targeting certain foods/groups to have in his diet at least 3 times a week to daily. -Encouraged to talk to his provider about Milk Thistle use to protect liver/help prevent scarring. -REviewed reyes foods to eat often like whole soy, beets, cruciferous veggies, grees, beans and lentils, nuts and seeds, garlic/onions, spices, green tea/hibiscus tea, berries and cherries. We discussed carbohydrate cap of 220g per day and reveiwed keeping 30g fiber as a minimum goal and <30g added sugar as a goal as well - reviewed sources and how to track. We looked at setting up meal plan to include the above foods and keeping things simple and just working on pairing food choices together -especially at snacks. For example carrot sticks and hummus and a handful of nuts or celery sticks with tuna and some berries. He took home some education materials and some of the menus we worked on. he has my contact info should he need further support, more resources. Time Spent in Nutritional Counseling and Treatment: 60 min
== END 2024-04-08 05:09 | disposition home or self-care (01) ==
LOC: DS 05:09
PROVIDERS: PCP Family Medicine; Visit Provider Dietitian, Registered
DX: E78.5 Hyperlipidemia, unspecified (principal); E66.8 Other obesity; Z68.30 Body mass index [BMI] 30.0-30.9, adult; Z71.3 Dietary counseling and surveillance
CPT/HCPCS: 00123; 97802

== ENCOUNTER 2024-04-15 11:19 | Outpatient (REF) | payer OTHER, SELFPAY ==
[2024-04-15 15:45] LABS: Cholesterol 226 mg/dL (<200); Estimated GFR 95.77 (mL/min/1.73m2); HDL Cholesterol 31 mg/dL (40-60); Triglyceride 890 mg/dL (<150)
[2024-04-15 16:06] LABS: LDL CHOLESTEROL 61 mg/dL (<100)
== END 2024-04-15 11:20 | disposition home or self-care (01) ==
LOC: NCHCN 11:19
PROVIDERS: PCP Family Medicine; Visit Provider Family Medicine
DX: E78.5 Hyperlipidemia, unspecified (principal); I10 Essential (primary) hypertension
CPT/HCPCS: 80061; 83721; 82565

== ENCOUNTER 2024-04-17 08:00 | Outpatient (RCR) | payer OTHER, SELFPAY | END 2024-04-19 23:59 | disposition home or self-care (01) | LOC: CR 08:00 | PROVIDERS: PCP Family Medicine; Visit Provider Internal Medicine Cardiovascular Disease | DX: I71.00 Dissection of unspecified site of aorta (principal) | CPT/HCPCS: S9472 ==

== ENCOUNTER 2024-05-06 08:00 | Outpatient (RCR) | payer OTHER, SELFPAY | END 2024-05-20 23:59 | disposition home or self-care (01) | LOC: CR 08:00 | PROVIDERS: PCP Family Medicine; Visit Provider Internal Medicine Cardiovascular Disease | DX: I71.010 Dissection of ascending aorta (principal); Z95.5 Presence of coronary angioplasty implant and graft | CPT/HCPCS: S9472 ==

== ENCOUNTER 2024-05-08 08:00 | Outpatient (RCR) | payer OTHER, SELFPAY | END 2024-05-20 23:59 | disposition home or self-care (01) | LOC: CR 08:00 | PROVIDERS: PCP Family Medicine; Visit Provider Internal Medicine Cardiovascular Disease | DX: I71.010 Dissection of ascending aorta (principal); Z95.5 Presence of coronary angioplasty implant and graft | CPT/HCPCS: S9472 ==

== ENCOUNTER 2024-09-30 08:44 | Outpatient (REF) | payer MEDICAID, SELFPAY ==
[2024-09-30 15:05] LABS: Hemoglobin A1C 5.2 % (<5.7)
[2024-09-30 15:17] LABS: ALT 31 U/L (16-63); AST 32 U/L (15-37); Albumin 4.1 g/dL (3.4-5.0); Alkaline Phosphatase 78 U/L (46-116); Anion Gap 9.1 mmol/L (3-11); BUN 17 mg/dL (7-18); Bilirubin, Total 1.07 mg/dL (0.2-1.0); CO2 26.9 mmol/L (21.0-32.0); CREATININE 0.9 mg/dL (0.70-1.30); Calcium 8.8 mg/dL (8.5-10.1); Chloride 105 mmol/L (98-107); Estimated GFR 108.01 (mL/min/1.73m2); Glucose 106 mg/dL (74-106); Potassium 4.2 mmol/L (3.5-5.1); Sodium 141 mmol/L (136-145); Total Protein 6.8 g/dL (6.4-8.2)
== END 2024-09-30 08:45 | disposition home or self-care (01) ==
LOC: NCHCN 08:44
PROVIDERS: PCP Family Medicine; Visit Provider Family Medicine
DX: E66.9 Obesity, unspecified (principal); R94.5 Abnormal results of liver function studies
CPT/HCPCS: 80053; 83036

== ENCOUNTER 2025-01-20 10:06 | Outpatient (REF) | payer OTHER, MEDICAID, SELFPAY ==
[2025-01-20 20:10] LABS: HCT 42.1 % (40.0-50.0); HGB 14.8 g/dL (13.5-17.5); MCH 32.5 pg (27.0-33.0); MCHC 35.2 % (32.0-36.0); MCV 93 fL (80-95); MPV 11.6 fL (8.0-11.0); Platelet Count 256 10^3/uL (130-400); RBC 4.55 10^6/uL (4.36-5.78); RDW 12.6 % (11.8-14.1); RDW-SD 42.7 fL; WBC 7.96 10^3/uL (4.4-10.8)
[2025-01-20 20:19] LABS: COMMENT (LAB VIEW ONLY) 185.36 mg/dL; Microalb ug/mg Crea 3.7 ug/mg Cr
[2025-01-20 20:27] LABS: Bilirubin Negative (Negative); Blood Small (Negative); Clarity Clear (Clear); Glucose Negative (Negative); Ketones Negative (Negative); Leukocyte Esterase Negative (Negative); Nitrite Negative (Negative); Specific Gravity 1.025 (1.005-1.025); Urobilinogen 0.2 mg/dL (Up to 0.2); pH 6.5 (5-8)
[2025-01-20 20:28] LABS: ALT 46 U/L (16-63); AST 30 U/L (15-37); Albumin 4.2 g/dL (3.4-5.0); Alkaline Phosphatase 87 U/L (46-116); Anion Gap 8.1 mmol/L (3-11); BUN 16 mg/dL (7-18); CO2 29.9 mmol/L (21.0-32.0); CREATININE 1.1 mg/dL (0.70-1.30); Calcium 9.5 mg/dL (8.5-10.1); Chloride 103 mmol/L (98-107); Estimated GFR 84.89 (mL/min/1.73m2); Glucose 100 mg/dL (74-106); NT-proBNP 72 pg/mL (<300); Potassium 4.6 mmol/L (3.5-5.1); Sodium 141 mmol/L (136-145); Total Protein 7.3 g/dL (6.4-8.2)
[2025-01-20 20:41] LABS: Bacteria Negative HPF (Negative); C & S Indicated? No; Casts Negative LPF (Negative); Crystals Negative HPF (Negative); Epithelial Cells Negative HPF (Negative); Mucus Negative (Negative); RBC 0-2 HPF (0-2); WBC Negative HPF (0-5)
[2025-01-20 21:19] LABS: Hemoglobin A1C 5.3 % (<5.7)
== END 2025-01-20 10:07 | disposition home or self-care (01) ==
LOC: NCHCN 10:06
PROVIDERS: PCP Family Medicine; Visit Provider Family Medicine
DX: Z13.1 Encounter for screening for diabetes mellitus (principal); R06.00 Dyspnea, unspecified; I10 Essential (primary) hypertension; R31.9 Hematuria, unspecified
CPT/HCPCS: 80053; 85027; 81003; 81015; 82043; 82570; 83036; 83880

== ENCOUNTER 2025-02-17 00:36 | Outpatient (CLI) | payer OTHER, MEDICAID, SELFPAY ==
--- NOTE | 2025-02-17 07:30 | DI.US_ITS ---
APPROVED REPORT EXAM: Comprehensive 2D, Doppler, and color-flow Echocardiogram Patient Location: Out-Patient Chocolatier: Lionel Saucedo RDCS (AE) Indications: Dyspnea Other Information Study Quality: Good Conclusion Normal left ventricular wall thickness and chamber size. Ejection fraction is 60 to 65%. Wall motio n is normal Normal right ventricular size and function Both atria are normal in size Aortic valve is trileaflet without stenosis or regurgitation There is no additional significant valvular disease Aortic root measures 3.41 cm, ascending aorta 4.24 cm Wall motion Left Ventricle The left ventricle is normal size. Left ventricular systolic function is normal. The left ventricular ejection fraction is within the normal range. There is normal left ventricular wall thickness. There is normal LV segmental wall motion. The left ventricular diastolic function is normal. There is no v entricular septal defect visualized. LVEF is 60-65%. Right Ventricle The right ventricle is normal size. The right ventricular systolic function is normal. Atria The left atrium size is normal. The right atrium size is normal. The interatrial septum is intact wit h no evidence for an atrial septal defect. Aortic Valve The aortic valve is normal in structure. There is no aortic valvular stenosis. No aortic regurgitatio n is present. Mitral Valve The mitral valve is normal in structure. No evidence of mitral valve stenosis. Trace mitral regurgita tion Tricuspid Valve The tricuspid valve is normal in structure. There is no tricuspid valve stenosis. Trace tricuspid reg urgitation. Pulmonic Valve The pulmonary valve is normal in structure. There is no pulmonic valvular stenosis. Trace pulmonic re gurgitation. Great Vessels Aortic root is mildly dilated. Ascending aorta measures 4.24 cm Aortic arch is normal in caliber. IV C is normal in size and collapses >50% with inspiration. Pericardium There is no pericardial effusion. 2D Dimensions IVSD d PLAX 1.17 cm M: 0.6-1.2 Ao Root d 3.41 cm M: 3.1 - 3.7 LVPW d PLAX 1.18 cm M: 0.6 - 1.2 Ao Asc Diam d 4.24 cm M: 2.6 - 3.4 LVID d PLAX 5.23 cm M: 4.2 - 5.8 LVDs 3.55 cm M: 2.5 - 4.0 LV EF Teichholz 60.0 % FS 32.17 % LV EDV (Teich) 131.1 mL LV ESV (Teich) 52.5 mL Stroke Vol Index (Teich) 33.75 M-Mode TAPSE 3.18 cm (M/F) >1.7 Auto EF LV EDV A4C 161.4 mL LV EDV A2C 215.1 mL LV EDV BP 187.3 mL LV ESV A4C 60.3 mL LV ESV A2C 75.8 mL LV ESV BP 68.0 mL LVEF(%) A4C 62.6 % LVEF(%) A2C 64.8 % LVEF(%) BP 63.7 % LV SV A4C 101.1 ml LV SV A2C 139.3 ml LV SV BP 119.2 ml LV CO A4C 5.1 L/min LV CO A2C 6.5 L/min LV CO BP 5.8 L/min HR A4C 50.78 BPM HR A2C 46.70 BPM LV EDV Index (BP) LA Volume LA Length A4C 5.3 cm LA Length A2C 5.3 cm LA Area A4C s 16.80 cm2 LA Area A2C s 21.56 cm2 LA Vol A4C A-L 45.49 mL LA Vol A2C A-L 74.70 mL LA Vol Biplane A-L 58.4 mL LA Vol/BSA A4C A-L LA Vol/BSA A2C A-L LA Vol/BSA BP A-L 25.1 mL/m2 LA Vol A4C MOD 41.6 mL LA Vol A2C MOD 66.7 mL LA Vol BP MOD 52.0 mL RA Volume RA Area A4C 13.0 cm2 RA ESV A4C (A-L) 32.6mL RA Vol/BSA A4C A-L RA Length A4C 4.4 cm RA ESV A4C (MOD) 32.0mL LV Diastology MV E' medial 0.123 (>0.07 m/s) MV E Vmax 0.89 (0.4-1.3 m/s) MV E/E' MED 7.20 (<14) MV A Vmax 0.50 (0.4-1.3 m/s) MV E' lateral 0.158 (>0.1 m/s) E/A Ratio 1.8 MV E/E' LAT 5.61 (<14) MV E' Average 0.141 m/s MV E/E'(average) 6.31 Aortic Valve AoV Vmax 2.40 m/s LVOT Vmax 1.07 m/s AoV Peak Grad 23.1 mmHg LVOT Peak Grad 4.6 mmHg AoV Area (Vmax) 1.65 cm2 LVOT VTI 0.303 m AoV VTI 0.600 m LVOT Mean Grad 2.5 mmHg AoV Mean Stanislaw. 1.51 m/s LVOT SV 111.70 mL AoV Mean Grad 11.0 mmHg LVOT Diam s 2.15 cm AoV Area (VTI) 1.86 cm2 AV Regurg Peak Gr. 23.08 mmHg Velocity Ratio 0.45 Mitral Valve MV DT 215 (160-240 msec) Pulmonary Valve PV Vmax 1.67 (0.5-1.5 m/s) RVOT Vmax 0.68 m/s PV Peak Grad 11.2 mmHg RVOT Peak Gr. 1.8 mmHg PV Mean Stanislaw 0.98 m/s RVOT VTI 0.159 m PV Mean Grad 4.7 mmHg RVOT Mean Gr. 0.9 mmHg Tricuspid Valve TV S' 0.13 m/s
== END 2025-02-17 00:56 ==
PROVIDERS: PCP Family Medicine; Visit Provider Internal Medicine Cardiovascular Disease
DX: I35.1 Nonrheumatic aortic (valve) insufficiency (principal); R06.00 Dyspnea, unspecified
CPT/HCPCS: 93306